=== PATIENT | female | born 1945 | race Caucasian/White ===

== ENCOUNTER → 2019-05-19 | Outpatient (CLI) | payer OTHER | LOC: SJCVC 13:37 | DX: R94.31 Abnormal electrocardiogram [ECG] [EKG] (principal); I48.91 Unspecified atrial fibrillation; I10 Essential (primary) hypertension; E78.5 Hyperlipidemia, unspecified; Z79.899 Other long term (current) drug therapy ==

== ENCOUNTER → 2019-06-16 | Outpatient (CLI) | payer OTHER | LOC: SJCVCIMAG 09:09 | DX: I07.1 Rheumatic tricuspid insufficiency (principal); I27.20 Pulmonary hypertension, unspecified; R00.0 Tachycardia, unspecified; I11.9 Hypertensive heart disease without heart failure; I48.91 Unspecified atrial fibrillation; E78.5 Hyperlipidemia, unspecified; Z79.82 Long term (current) use of aspirin; Z79.899 Other long term (current) drug therapy ==

== ENCOUNTER → 2020-06-14 | Outpatient (CLI) | payer OTHER | LOC: SJCVC 10:02 | PROVIDERS: ATTEND Internal Medicine | DX: I48.91 Unspecified atrial fibrillation (principal); I10 Essential (primary) hypertension; E78.5 Hyperlipidemia, unspecified; Z88.1 Allergy status to other antibiotic agents; Z88.8 Allergy status to other drugs, medicaments and biological substances; Z79.899 Other long term (current) drug therapy ==

== ENCOUNTER → 2020-12-05 | Outpatient (CLI) | payer OTHER ==
[~2020-12-05] VITALS: Ht 154.9 cm; Wt 75.0 kg
[~2020-12-05] MED LIST: AZELASTINE205.5 MCG/ NARES; CALCIUM CITRAT1 EAC7 PO; ELIQUIS5 MG PO; K-DUR10 MEQ PO; PRAVASTATIN SOD10 MG PO
[2020-12-05 10:27] LABS: HEMATOCRIT 42.2 % (37.0-47.0); HEMOGLOBIN 13.9 gm/dL (12.0-15.0); MCH 30.5 pg (26.0-34.0); MCHC 32.9 g/dL (28.0-37.0); MCV 92.7 fL (80.0-100.0); RBC 4.55 mil/uL (4.20-5.00); RDW 13.6 % (10.5-14.5); WBC 5.8 thou/uL (4.0-11.0)
[2020-12-05 10:42] VITALS: BP 171/100
[2020-12-05 10:47] LABS: CREATININE 1.3 mg/dL (0.6-1.0); POTASSIUM 4.2 mmol/L (3.5-5.1)
--- NOTE | 2020-12-05 15:42 | EKG ---
[place] [address] [facility] [place] [address] ELECTROCARDIOGRAM REPORT Name: OMERO SANDOVAL Room #: REG [facility]#: [id number] Admission: 12/05/20 Attend Phys: Erwin Berrios Discharge: Date of : 41 Report #: [id number] [facility] Test Date: 2020-12-05 Test Time: 10:02:28 Pat Name: OMERO SANDOVAL Department: Room: Gender: F Engineering Mgr: [facility] : 1945 Requested By: Erwin Berrios Order Number: [id number] MD: Polo Cardenas Measurements Intervals [place] Rate: 106 P: TN: QRS: 63 QRSD: 88 T: 20 QT: 357 QTc: 475 Interpretive Statements Atrial fibrillation Minimal ST depression, lateral leads No previous ECG available for comparison Electronically Signed On 12-05-2020 15:41:50 CDT by oPlo Cardenas [email or web address] <ELECTRONICALLY SIGNED> By: Polo Cardenas MD, [facility] 12/05/20 1541 1002 1002 Polo Cardenas MD, FACLucrecia /EPI
--- NOTE | 2020-12-07 10:49 | CATHLAB ---
[facility] [place] [address] INVASIVE PROCEDURE REPORT Name: OMERO SANDOVAL Room #: REG [facility]#: [id number] Admission: 12/05/20 Attend Phys: Erwin Berrios Discharge: Date of : 41 Report #: [id number] THIS REPORT FOR: cc: Chelsi Browning MD, Michelle R. MD Lammoglia, Francisco J. MD ~ APPROVED REPORT Study performed: 12/05/2020 11:33:27 Patient Details Patient Status: Out-Patient Room #: The patient is a 75 year-old female Event Personnel Erwin Berrios [employer] Guide, Dolly Rivero RN RN, Jada Crocker RTR Scrub, Lenore Lemus Monitor, Suzette Hancock RTR, DIESEL ENGINE TESTER Scrub Procedures Performed Art Access - R femoral artery* Left Heart Cath w/or w/o Coronaries [id number] [facility] Hemostasis with Manual pressure, supervision of conscious sedation Indication Positive stress test Procedure Narrative The Right Groin^ was infiltrated with 1% Lidocaine subcutaneous anesthesia. A PINNACLE 4FR Sheath #[id number] sheath was inserted into the RFA^. Coronary angiography was performed using coronary diagnostic catheters. The right coronary system was accessed and visualized with a JR4 catheter. The left coronary system was accessed and visualized with a JL4 catheter. The left ventricle was accessed and visualized with a ANGLED PIGTAIL catheter. Left ventricular/Aortic Valve gradient assessed via catheter pullback. Hemostasis was obtained with manual pressure following sheath removal without any complications. The patient tolerated the procedure well and there were no complications associated with the procedure. There was no hematoma. Intraoperative Conscious Sedation Sedation start time: 11:49 Case end Time: 12:09 [facility] [place] [address] [place] [address] INVASIVE PROCEDURE REPORT Name: JAIME,OMERO M Room #: REG [facility]#: [id number] Admission: 12/05/20 Attend Phys: Erwin Rodriguez Discharge: Date of : 41 Report #: [id number] Versed 2 mg Fluoro Time: 2.35 minutes Dose: DAP 2268.00 cGycm2 Contrast Type and Amount: Omnipaque 40 ml Coronary Angiography The patient's coronary anatomy is right dominant. Diagnostic Cath Left Main Moderate to large caliber vessel normal origin mild plaquing proximally less than 30%. Bifurcates left into descending left circumflex LAD Fluoroscopic realization demonstrates extensive calcification of the proximal third of the left anterior descending and subsidiary branches. Small caliber type II vessel which courses in the interventricular sulcus giving rise to moderate caliber first diagonal branch. And continues on a tortuous course in the anterior interventricular sulcus where there is a 50% eccentric lesion in its mid course. The vessel continues to taper without any high-grade obstructive lesions giving rise to several diagonal branches Diagonal 1 moderate caliber vessel without significant high-grade lesions noted coursing on the anterolateral aspect of the left ventricle Circumflex Moderate proximal fluoroscopic plaquing noted. Vessels a moderate caliber nondominant vessel go coursing the AV groove posteriorly giving rise to 2 small posterior wall branches. There is luminal irregularities but no high-grade lesions present. It then terminates a small posterior wall branch OM1 Insignificant caliber diminutive vessel with a proximal lesion coursing on the lateral aspect of the heart OM2 Small caliber posterior wall branch tortuous course free of high-grade lesion but only mild plaque OM3 Small caliber vessel without significant high-grade Right Coronary Moderate caliber dominant vessel of normal origin coursing the AV groove posteriorly giving rise to small insignificant atrial and ventricular branches. The vessel then proceeds posteriorly giving rise to posterior descending artery which is small in caliber and a posterior wall branches. There is irregularities of less than 30% noted in several portions of the proximal and mid RCA which are nonflow limiting. R PDA Diminutive caliber vessel coursing in the posterior interventricular sulcus giving rise to septal branches reaching the apex. History of high-grade lesion Left Ventriculography [facility] [address] [place] [address] INVASIVE PROCEDURE REPORT Name: OMERO SANDOVAL Room #: REG K[facility]#: [id number] Admission: 12/05/20 Attend Phys: Erwin Rodriguez Discharge: Date of : 41 Report #: [id number] Left Ventriculography was not performed. Hemodynamics The aortic pressure is 179/93 mmHg with a mean of 121 mmHg. The left ventricular pressure is 153/10 mmHg with a mean of mmHg. The left ventricular end diastolic pressure is 17 mmHg. Conclusion 1. Coronary disease, mild to moderate, nonobstructive 2. Normal hemodynamics with normal limited end-diastolic pressure Recommendations Cardiac Risk Reduction Program Medical Therapy <ELECTRONICALLY SIGNED> By: Erwin Berrios MD 12/07/20 1049 1049 1049 Erwin Brerios MD /INF
== END | disposition home or self-care (01) ==
LOC: CATH 08:27
PROVIDERS: ATTEND Internal Medicine
DX: R94.39 Abnormal result of other cardiovascular function study (principal); I25.10 Atherosclerotic heart disease of native coronary artery without angina pectoris; I10 Essential (primary) hypertension; E78.5 Hyperlipidemia, unspecified; I48.91 Unspecified atrial fibrillation; Z98.890 Other specified postprocedural states; Z79.899 Other long term (current) drug therapy; Z79.01 Long term (current) use of anticoagulants; Z96.653 Presence of artificial knee joint, bilateral; Z98.84 Bariatric surgery status

== ENCOUNTER → 2021-05-13 | Outpatient (CLI) | payer OTHER | LOC: LAB 09:31 | PROVIDERS: ATTEND Student in an Organized Health Care Education/Training Program | DX: Z20.822 Contact with and (suspected) exposure to COVID-19 (principal) ==

== ENCOUNTER → 2021-05-14 | Outpatient (CLI) | payer OTHER ==
[~2021-05-14] VITALS: Ht 154.9 cm; Wt 79.4 kg
== END | disposition home or self-care (01) ==
LOC: GI 08:55
PROVIDERS: ATTEND Internal Medicine
DX: R19.5 Other fecal abnormalities (principal); K55.20 Angiodysplasia of colon without hemorrhage; K64.8 Other hemorrhoids; K44.9 Diaphragmatic hernia without obstruction or gangrene; I10 Essential (primary) hypertension; E78.5 Hyperlipidemia, unspecified; I48.91 Unspecified atrial fibrillation; I25.10 Atherosclerotic heart disease of native coronary artery without angina pectoris; Z98.890 Other specified postprocedural states; Z79.899 Other long term (current) drug therapy; Z98.51 Tubal ligation status; Z98.84 Bariatric surgery status; Z96.653 Presence of artificial knee joint, bilateral; Z79.01 Long term (current) use of anticoagulants
CPT/HCPCS: 62110; 62900